=== PATIENT | male | born 1995 | race Two or more races ===

== ENCOUNTER 2017-04-06 06:32 | Emergency (ER) | payer OTHER ==
[2017-04-06] MEDS ORDERED: CETI10CA8 PO (06:50)
--- NOTE | 2017-04-06 06:59 | ER Report ---
History and Physical Time Seen By MD: 06:50 Hx. of Stated Complaint: Patient reporting he cant sleep because his body aches and is coughing. Seen by [facility] on saturday and sent with cough syrup. [facility] said possible mono if he didnt improve. (ISABELL VENEGAS MD) HPI/ROS CHIEF COMPLAINT: cough, fever HISTORY OF PRESENT ILLNESS: This is a 22 year old male. He was seen at [facility] on Saturday. He was having congestion and sore throat at that time. He had a throat swab that the patient said was negative. He did not think that he had a flu swab done because he had the flu shot this year. He was given Tylenol and cough syrup. He has continued to feel poorly and worsening over the course of the last couple of days. He has lost his voice. He is having muscle aches and pains. He has fevers and then shaking chills. He had a rash yesterday that was itchy. He took some Zyrtec that he uses for allergic rhinitis and it improved. He has a nonproductive cough. Chest feels tight with cough. (ISABELL VENEGAS MD) Allergies: Coded Allergies: No Known Drug Allergies (Unverified , 04/06/17) Home Meds Reported Medications Cetirizine Hcl (ZYRTEC) 10 Mg Capsule, 10 MG PO QDAY, CAPSULE 04/06/17 Reviewed Nurses Notes: Yes (ISABELL VENEGAS MD) Constitutional Vital Sign - Last 24 Hours 04/06/17 04/06/17 04/06/17 04/06/17 06:36 06:36 07:32 07:33 Temp 99.8 Pulse 95 92 Resp 18 B/P (MAP) 113/74 (87) 113/73 107/75 (86) Pulse Ox 94 96 O2 Delivery Room Air 04/06/17 04/06/17 04/06/17 07:38 07:43 07:48 Pulse 77 87 84 Pulse Ox 95 93 96 (EWA TATUM MD) Physical Exam General Appearance: The patient is alert. Ill appearing, but Non-toxic in appearance. Eyes: Pupils are equal, round. No pallor, injection or icterus. ENT: Mucous membranes are moist. Normal oral mucosa. Posterior oropharynx with erythema and post nasal drainage, but no exudates or hypertrophy. Nasal mucosa also very erythematous. Normal tympanic membranes and canals, but has bilateral effusions. Neck: Supple and non tender. Respiratory: Breathing easily and unlabored. Lungs with some rhonchi which seem to clear with cough, no rales or wheezing. There are no retractions or accessory muscle use. Cardiovascular: Regular rate and rhythm. No murmurs, gallops or rubs. Normal capillary refill. Gastrointestinal: Abdomen is soft and non tender. Nondistended. Normal active bowel sounds. Neurological: Alert and oriented x3. Skin: Warm and dry. No current rashes. DIFFERENTIAL DIAGNOSIS: After history and physical exam, differential diagnosis was considered for cough and shortness of breath, concerning for pulmonary infectious process or influenza. (ISABELL VENEGAS MD) Medical Decision Making Data Points Laboratory Hematology Test 04/06/17 06:58 Influenza Virus Type A (PCR) Negative (NEGATIVE) Influenza Virus Type B (PCR) Negative (NEGATIVE) Chemistry Test 04/06/17 06:58 Influenza Virus Type A (PCR) Negative (NEGATIVE) Influenza Virus Type B (PCR) Negative (NEGATIVE) (EWA TATUM MD) EKG/Imaging Imaging Chest x-ray negative for acute pulmonary process, this was discussed with the patient 04/06/2017 7:37:36 am (EWA TATUM MD) ED Course/Re-evaluation ED Course The patient develop nausea while in the ED Zofran was provided by the nurse. Re-evaluation 04/06/2017 7:48:38 am serologies negative for influenza this was discussed with the patient no other concerns or complaints at this time Decision to Disposition Date: Apr 06, 2017 Decision to Disposition Time: 07:48 (EWA TATUM MD) Depart Departure Latest Vital Signs Vital Signs Date Time Temp Pulse Resp B/P (MAP) Pulse Ox O2 Delivery O2 Flow Rate FiO2 04/06/17 07:48 84 96 04/06/17 07:33 107/75 (86) 04/06/17 06:36 99.8 18 Room Air (EWA TATUM MD) Impression: Primary Impression: Upper respiratory infection Condition: Improved Disposition: HOME OR SELF-CARE Patient Instructions: Upper Respiratory Infection (ED) Additional Instructions: Recommendations for [id number] cold remedies was discussed. A prescription for Zofran was provided for when necessary use. A work note was provided for 3 days off. Problem Qualifiers Primary Impression: Upper respiratory infection URI type: unspecified viral URI Qualified Codes: J06.9 - Acute upper respiratory infection, unspecified ISABELL VENEGAS MD Apr 06, 2017 06:59 EWA TATUM MD Apr 06, 2017 07:38
--- NOTE | 2017-04-06 07:27 | RADIOLOGY IMAGING REPORT ---
FACILITY: [facility] PATIENT NAME: Jeff Darden : 1995 MR: [id number] V: [id number] EXAM DATE: ORDERING PHYSICIAN: ISABELL VENEGAS TECHNOLOGIST: Location: [facility] [place] Patient: Jeff Darden : 1995 Visit/Account:[id number] Date of Sevice: 04/06/2017 CHEST PA AND LATERAL 04/06/2017 6:49 AM. INDICATION: cough, fevers COMPARISON: None. FINDINGS: Lungs are well-expanded. The lungs are clear. No pneumothorax or pleural effusion. Pulmo nary vasculature is unremarkable. Heart size is normal. IMPRESSION: Normal. Report Dictated By: Jason Martínez MD at 04/06/2017 7:22 AM Report E-Signed By: Jason Martínez MD at 04/06/2017 7:23 AM WSN:[id number]
[2017-04-06] MEDS ORDERED: ONDANSETRON 4 MG ODT TH SL ONE (07:30)
[2017-04-06 07:33] VITALS: BP 107/75
== END 2017-04-06 07:53 | disposition home or self-care (01) ==
LOC: ER 06:43
DX: J06.9 Acute upper respiratory infection, unspecified (principal)
CPT/HCPCS: 71046; 87502; 99283; S0119